=== PATIENT | female | born 1970 | race American Indian/Alaskan Native ===

== ENCOUNTER 2018-03-12 01:37 | Emergency (ER) | payer OTHER ==
[2018-03-12] MEDS ORDERED: MOTRIN ONE (02:24)
[2018-03-12 03:33] LABS: Basophils % (Auto) 0.5 % (0.0-1.8); Eosinophils # (Auto) 0.1 K/mm3 (0.0-0.4); Eosinophils % (Auto) 1.8 % (0.0-4.3); Hematocrit 42.7 % (30.3-42.9); Hemoglobin 14.6 gm/dl (10.1-14.3); Lymphocytes % (Auto) 24.6 % (13.4-35.0); Mean Corpuscular HGB Conc 34 % (30-34); Mean Corpuscular Hemoglobin 32 pg (28-32); Mean Corpuscular Volume 95 fl (79-97); Monocytes # (Auto) 0.8 K/mm3 (0.0-0.8); Monocytes % (Auto) 9.7 % (0.0-7.3); Platelet Count 200 K/mm3 (140-440); Red Cell Distribution Width 13.4 % (13.2-15.2)
[2018-03-12 03:47] LABS: Alanine Aminotransferase 15 units/L (7-56); Albumin 4.5 g/dL (3.9-5); BUN/Creatinine Ratio 13; Blood Urea Nitrogen 13 mg/dL (7-17); Calcium 9.2 mg/dL (8.4-10.2); Hemolysis Index 42
[2018-03-12] MEDS ORDERED: NACL 0.9% 1000 ML 1,000 ML IV ONE (06:21)
[2018-03-12] MEDS ORDERED: ZOFRAN IV ONE (06:21)
[2018-03-12] MEDS ORDERED: PROTONIX IV ONE (06:21)
[2018-03-12] MEDS ORDERED: DILAUDID IV ONE (06:21)
[2018-03-12] MEDS ORDERED: TORADOL IV ONE (06:21)
[2018-03-12] MEDS ORDERED: SOLU-Medrol IV ONE (06:21)
--- NOTE | 2018-03-12 07:03 | Emergency Department Report ---
ED General Adult HPI - General Chief complaint: Pain General Stated complaint: HANDS,FEET,ELBOWS,KNEES SWEELING Time Seen by Provider: 03/12/18 06:06 Source: patient Mode of arrival: Ambulatory Limitations: No Limitations - History of Present Illness Initial comments: 47 year old female with a possible diagnosis of lupus, seizures, and previous perforated peptic ulcer presents to the hospital complaints of generalized arthralgias for 2 days. Patient complains of 10/10 pain to her hands, feet, elbows, and needs 2 days. No fall, trauma, fever, joint redness, warmth, or swelling reported. Pain is constant and worse with palpation and movement. No alleviating factors. Similar symptoms with lupus flare in the past. Patient has not been on this medication since 2013 due to lapse in insurance that she currently has XTRM. Patient states that she was being worked up for lupus and received it as a possible diagnosis but was unable to continue follow-up and treatment. Severity scale (0 -10): 0 - Related Data Home Medications Medication Instructions Recorded Confirmed Last Taken Keppra 1,000 mg PO HS 03/12/18 03/12/18 Unknown Metoprolol 100 mg PO BID 03/12/18 03/12/18 Unknown Phenobarbital 30 mg PO HS 03/12/18 03/12/18 Unknown Plaquenil 150 mg PO BID 03/12/18 03/12/18 Unknown Previous Rx's Medication Instructions Recorded Last Taken Type oxyCODONE /ACETAMINOPHEN [Percocet 1 tab PO Q6HR PRN #20 tablet 03/12/18 Unknown Rx 5/325] predniSONE [Deltasone] 40 mg PO QDAY 5 Days tab 03/12/18 Unknown Rx Allergies Allergy/AdvReac Type Severity Reaction Status Date / Time No Known Allergies Allergy Verified 03/12/18 03:06 ED Review of Systems ROS: Stated complaint: HANDS,FEET,ELBOWS,KNEES SWEELING Other details as noted in HPI Comment: All other systems reviewed and negative ED Past Medical Hx - Past Medical History Hx Seizures: Yes Additional medical history: LUPUS - Surgical History Hx Cholecystectomy: Yes Additional Surgical History: C-sections X 3, Hernia Repair, Perforated Ulcer, Bowel Obstruction - Social History Smoking Status: Current Every Day Smoker Substance Use Type: None - Medications Home Medications: Home Medications Medication Instructions Recorded Confirmed Last Taken Type Keppra 1,000 mg PO HS 03/12/18 03/12/18 Unknown History Metoprolol 100 mg PO BID 03/12/18 03/12/18 Unknown History Phenobarbital 30 mg PO HS 03/12/18 03/12/18 Unknown History Plaquenil 150 mg PO BID 03/12/18 03/12/18 Unknown History oxyCODONE /ACETAMINOPHEN [Percocet 1 tab PO Q6HR PRN #20 tablet 03/12/18 Unknown Rx 5/325] predniSONE [Deltasone] 40 mg PO QDAY 5 Days tab 03/12/18 Unknown Rx ED Physical Exam - General Limitations: No Limitations - Other Other exam information: General: No limitations, moderate distress secondary to pain Head exam: Atraumatic, normocephalic Eyes exam: Normal appearance ENT: Moist mucous membrane Neck exam: Normal inspection, full range of motion, no meningismus nontender Respiratory exam: Clear to auscultation bilateral, no wheezes, rales, crackles Cardiovascular: Tachycardic regular rhythm Abdomen: Soft, nondistended, and nontender, with normal bowel sounds, no rebound, or guarding Extremity: Full range of motion normal inspection no deformity. Tenderness to palpation and with movement multiple extremities Back: Normal Inspection, full range of motion, no tenderness Neurologic: Alert, oriented x3, cranial nerves intact, no motor or sensory deficit Psychiatric: normal affect, normal mood Skin: Warm, dry, intact ED Course Vital Signs 03/12/18 03/12/18 03/12/18 03:09 07:10 07:15 Temperature 98.5 F Pulse Rate 128 H 111 H Respiratory 18 22 Rate Blood Pressure Blood Pressure 127/86 131/93 [Left] O2 Sat by Pulse 99 100 99 Oximetry 03/12/18 03/12/18 03/12/18 07:30 07:45 08:00 Temperature Pulse Rate Respiratory Rate Blood Pressure 121/77 118/77 120/75 Blood Pressure [Left] O2 Sat by Pulse 97 97 96 Oximetry 03/12/18 03/12/18 03/12/18 08:15 08:23 09:37 Temperature 98.7 F Pulse Rate 102 H 100 H Respiratory 20 Rate Blood Pressure 124/76 Blood Pressure 145/90 [Left] O2 Sat by Pulse 96 99 Oximetry - Consultations Consultation #1: 03/12/18 08:40 Case d/w Dr Grant with [facility], will arrange for PCP visit in 3-5 days and Rheumatology visit in 1-2 weeks. RN will call Pt regarding appointments. ED Medical Decision Making - Lab Data Result diagrams: 03/12/18 03:20 03/12/18 03:20 Lab Results 03/12/18 03/12/18 Range/Units 03:20 03:20 WBC 8.1 (4.5-11.0) K/mm3 RBC 4.50 (3.65-5.03) M/mm3 Hgb 14.6 H (10.1-14.3) gm/dl Hct 42.7 (30.3-42.9) % MCV 95 (79-97) fl MCH 32 (28-32) pg MCHC 34 (30-34) % RDW 13.4 (13.2-15.2) % Plt Count 200 (140-440) K/mm3 Lymph % (Auto) 24.6 (13.4-35.0) % [place] % (Auto) 9.7 H (0.0-7.3) % Eos % (Auto) 1.8 (0.0-4.3) % Baso % (Auto) 0.5 (0.0-1.8) % Lymph # 2.0 (1.2-5.4) K/mm3 [place] # 0.8 (0.0-0.8) K/mm3 Eos # 0.1 (0.0-0.4) K/mm3 Baso # 0.0 (0.0-0.1) K/mm3 Seg Neutrophils % 63.4 (40.0-70.0) % Seg Neutrophils # 5.1 (1.8-7.7) K/mm3 Sodium 135 L (137-145) mmol/L Potassium 3.5 L (3.6-5.0) mmol/L Chloride 98.3 (98-107) mmol/L Carbon Dioxide 18 L (22-30) mmol/L Anion Gap 22 mmol/L BUN 13 (7-17) mg/dL Creatinine 1.0 (0.7-1.2) mg/dL Estimated GFR > 60 ml/min BUN/Creatinine Ratio 13 % Glucose 93 (65-100) mg/dL Calcium 9.2 (8.4-10.2) mg/dL Total Bilirubin 0.40 (0.1-1.2) mg/dL AST 23 (5-40) units/L ALT 15 (7-56) units/L Alkaline Phosphatase 60 (35-129) units/L Total Protein 7.8 (6.3-8.2) g/dL Albumin 4.5 (3.9-5) g/dL Albumin/Globulin Ratio 1.4 % - Medical Decision Making hr decreased to 98 at rest after pain meds (Dilaudid, Toradol, Zofran) Protonix x1 due to hx of PUD pt reports improvement but requesting a pill prior to d/c. Percocet given F/u apt's made by [facility] for PMD and rheumatology I am hesitant to continue high dose NSAIDS due to hx of perf ulcer PO kcl given for mild hypokalemia - Differential Diagnosis Lupus flare, arthritis, chronic pain, Critical Care Time: No Critical care attestation.: If time is entered above; I have spent that time in minutes in the direct care of this critically ill patient, excluding procedure time. ED Disposition Clinical Impression: Arthralgia, Lupus, Hypokalemia Disposition: TO HOME OR SELFCARE Is pt being admited?: No Does the pt Need Aspirin: No Condition: Stable Instructions: Arthralgia (ED), Hypokalemia (ED) Additional Instructions: Take the medication as prescribed. Follow up with your doctors as scheduled by [place]. Return if symptoms worsen as indicated by your discharge instructions Prescriptions: oxyCODONE /ACETAMINOPHEN [Percocet 5/325] 1 tab PO Q6HR PRN #20 tablet PRN Reason: Pain predniSONE [Deltasone] 40 mg PO QDAY 5 Days tab Referrals: MD Vivian [Other] - 03/15/18 9:00 am (PCP) MD Tonia [Other] - 03/26/18 9:30 am ([employer]) Time of Disposition: 10:12
[2018-03-12] MEDS ORDERED: K-DUR PO ONE (08:42)
[2018-03-12 09:37] VITALS: BP 145/90
[2018-03-12] MEDS ORDERED: PERCOCET 5/325 PO ONE (10:08)
== END 2018-03-12 10:40 | disposition home or self-care (01) ==
LOC: ED 01:37
DX: M32.9 Systemic lupus erythematosus, unspecified (principal); M25.572 Pain in left ankle and joints of left foot; M25.571 Pain in right ankle and joints of right foot; M25.542 Pain in joints of left hand; M25.541 Pain in joints of right hand; M25.522 Pain in left elbow; M25.521 Pain in right elbow; E87.6 Hypokalemia; Z90.49 Acquired absence of other specified parts of digestive tract; Z87.11 Personal history of peptic ulcer disease
CPT/HCPCS: 36415; 80053; 85025; 93005; 93010; 96374; 96375; 99284; C9113; J1170; J1885; J2405; J2930; J7030

== ENCOUNTER 2018-08-30 12:28 | Inpatient (IN) | payer OTHER ==
[2018-08-30] MEDS ORDERED: ASPIRIN PO ONE (12:38)
[2018-08-30] MEDS ORDERED: ZOFRAN IV ONE (12:53)
[2018-08-30] MEDS ORDERED: DILAUDID IV ONE ×4 (12:53→16:38)
[2018-08-30 13:01] LABS: Basophils % (Auto) 0.4 % (0.0-1.8); Eosinophils # (Auto) 0.1 K/mm3 (0.0-0.4); Eosinophils % (Auto) 0.9 % (0.0-4.3); Lymphocytes # (Auto) 1.6 K/mm3 (1.2-5.4); Lymphocytes % (Auto) 18.1 % (13.4-35.0); Mean Corpuscular HGB Conc 34 % (30-34); Mean Corpuscular Volume 93 fl (79-97); Monocytes # (Auto) 0.6 K/mm3 (0.0-0.8); Platelet Count 250 K/mm3 (140-440); Red Blood Count 4.07 M/mm3 (3.65-5.03); Red Cell Distribution Width 13.1 % (13.2-15.2)
[2018-08-30 13:09] LABS: INR 1.07 (0.87-1.13)
[2018-08-30 13:11] LABS: BUN/Creatinine Ratio 16; Blood Urea Nitrogen 11 mg/dL (7-17); Hemolysis Index 4
--- NOTE | 2018-08-30 13:22 | Emergency Department Report ---
ED Chest Pain HPI - General Chief Complaint: Chest Pain Stated Complaint: CHEST PAIN Time Seen by Provider: 08/30/18 12:47 Source: patient, EMS Mode of arrival: Stretcher Limitations: No Limitations - History of Present Illness Initial Comments: 48-year-old female with past medical history Lupus, hypertension, ulcers, and previous abdominal surgeries presents to the hospital complaining of pleuritic chest pain with shortness of breath. Pain is left-sided, anterior, moderate to severe, and worse with palpation, deep inspiration, and cough. Patient reports that she flew back and forth to [place] 2 weeks ago. She denies calf tenderness, leg edema, leg asymmetry, or history of PE/DVT. Patient also reports bilateral arm pain today. History of lupus-related pain and flare. She is compliant with her medications. Patient presents here with tachycardia just that she is done many times in the past. History of metoprolol use which was recently discontinued and patient states she is currently taking hydrochlorothiazide and amlodipine as prescribed by her [place] physicians. Patient had a TSH of .75 (normal range) performed on 08/27 by her PMD. Severity scale (0 -10): 10 - Related Data Home Medications Medication Instructions Recorded Confirmed Last Taken Ambien 1 each PO DAILY 08/30/18 08/30/18 Unknown Cymbalta 30 mg PO DAILY 08/30/18 08/30/18 Unknown Gabapentin 300 mg PO DAILY 08/30/18 08/30/18 Unknown Hydrochlorothiazide 25 mg PO DAILY 08/30/18 08/30/18 Unknown Seroquel 50 mg PO HS 08/30/18 08/30/18 Unknown amLODIPine 10 mg PO DAILY 08/30/18 08/30/18 Unknown Previous Rx's Medication Instructions Recorded Last Taken Type Ondansetron [Zofran Odt] 4 mg PO Q8HR PRN #20 tab.rapdis 04/21/18 Unknown Rx Keppra 750 mg PO BID #60 08/31/18 Unknown Rx Oxycodone HCl/Acetaminophen 1 each PO Q6HR PRN #20 tablet 08/31/18 Unknown Rx [Percocet 7.5/325 mg] Plaquenil 150 mg PO BID 08/31/18 Unknown Rx QUEtiapine [SEROquel] 50 mg PO QHS tablet 08/31/18 Unknown Rx levoFLOXacin [Levaquin] 750 mg PO QDAY #10 tablet 08/31/18 Unknown Rx predniSONE [Deltasone] 40 mg PO QDAY tablet 08/31/18 Unknown Rx Allergies Allergy/AdvReac Type Severity Reaction Status Date / Time lisinopril Allergy Swelling Verified 08/30/18 18:30 Heart Score - HEART Score History: Slightly suspicious EKG: Non-specific Age: 45-65 Risk factors: 1-2 risk factors Troponin: < normal limit HEART Score: 3 ED Review of Systems ROS: Stated complaint: CHEST PAIN Other details as noted in HPI Comment: All other systems reviewed and negative ED Past Medical Hx - Past Medical History Previous Medical History?: Yes Hx Hypertension: Yes Hx Seizures: Yes Additional medical history: LUPUS, ulcers - Surgical History Past Surgical History?: Yes Hx Cholecystectomy: Yes Additional Surgical History: C-sections X 3, Hernia Repair, Perforated Ulcer, Bowel Obstruction - Social History Smoking Status: Current Every Day Smoker Substance Use Type: None - Medications Home Medications: Home Medications Medication Instructions Recorded Confirmed Last Taken Type Ondansetron [Zofran Odt] 4 mg PO Q8HR PRN #20 tab.rapdis 04/21/18 08/30/18 Unknown Rx Ambien 1 each PO DAILY 08/30/18 08/30/18 Unknown History Cymbalta 30 mg PO DAILY 08/30/18 08/30/18 Unknown History Gabapentin 300 mg PO DAILY 08/30/18 08/30/18 Unknown History Hydrochlorothiazide 25 mg PO DAILY 08/30/18 08/30/18 Unknown History Seroquel 50 mg PO HS 08/30/18 08/30/18 Unknown History amLODIPine 10 mg PO DAILY 08/30/18 08/30/18 Unknown History Keppra 750 mg PO BID #60 08/31/18 Unknown Rx Oxycodone HCl/Acetaminophen 1 each PO Q6HR PRN #20 tablet 08/31/18 Unknown Rx [Percocet 7.5/325 mg] Plaquenil 150 mg PO BID 08/31/18 Unknown Rx QUEtiapine [SEROquel] 50 mg PO QHS tablet 08/31/18 Unknown Rx levoFLOXacin [Levaquin] 750 mg PO QDAY #10 tablet 08/31/18 Unknown Rx predniSONE [Deltasone] 40 mg PO QDAY tablet 08/31/18 Unknown Rx ED Physical Exam - General Limitations: No Limitations - Other Other exam information: General: No limitations, patient is alert in no acute distress Head exam: Atraumatic, normocephalic Eyes exam: Normal appearance, pupils equal reactive to light, extraocular movements intact ENT: Moist mucous membrane, normal oropharynx Neck exam: Normal inspection, full range of motion, no meningismus nontender Respiratory exam: Clear to auscultation bilateral, no wheezes, rales, crackles Cardiovascular: Tachycardic regular rhythm, left sided lower chest wall tenderness on palpation Abdomen: Soft, nondistended, and nontender, with normal bowel sounds, no rebound, or guarding Extremity: Full range of motion normal inspection no deformity, no calf tenderness or edema Back: Normal Inspection, full range of motion, no tenderness Neurologic: Alert, oriented x3, cranial nerves intact, no motor or sensory deficit Psychiatric: normal affect, normal mood Skin: Warm, dry, intact ED Course Vital Signs 08/30/18 08/30/18 08/30/18 12:30 12:33 13:13 Temperature 98.6 F Pulse Rate 132 H Respiratory 20 33 H 18 Rate Blood Pressure 128/83 Blood Pressure 128/83 [Left] O2 Sat by Pulse 100 98 Oximetry 08/30/18 08/30/18 08/30/18 13:43 14:16 14:41 Temperature Pulse Rate Respiratory 18 18 18 Rate Blood Pressure Blood Pressure [Left] O2 Sat by Pulse Oximetry 08/30/18 08/30/18 08/30/18 15:49 15:50 16:19 Temperature Pulse Rate 120 H Respiratory 18 18 18 Rate Blood Pressure Blood Pressure 126/82 [Left] O2 Sat by Pulse 96 Oximetry 08/30/18 08/30/18 08/30/18 16:43 16:45 17:45 Temperature Pulse Rate 123 H 130 H Respiratory 18 20 18 Rate Blood Pressure Blood Pressure 134/87 123/87 [Left] O2 Sat by Pulse 97 97 Oximetry 08/30/18 08/30/18 08/30/18 18:23 18:26 18:30 Temperature Pulse Rate 130 H 126 H 127 H Respiratory 18 26 H 36 H Rate Blood Pressure Blood Pressure 128/82 [Left] O2 Sat by Pulse 99 95 99 Oximetry 08/30/18 08/30/18 08/30/18 18:40 18:50 19:00 Temperature Pulse Rate Respiratory 34 H Rate Blood Pressure Blood Pressure [Left] O2 Sat by Pulse 96 96 96 Oximetry 08/30/18 08/30/18 08/30/18 19:10 19:15 19:20 Temperature 98.3 F Pulse Rate 116 H Respiratory 22 Rate Blood Pressure 134/87 134/87 Blood Pressure 148/87 [Left] O2 Sat by Pulse 97 98 97 Oximetry 08/30/18 08/30/18 08/30/18 19:31 19:41 19:51 Temperature Pulse Rate 130 H Respiratory 30 H Rate Blood Pressure 148/87 148/87 148/87 Blood Pressure [Left] O2 Sat by Pulse 95 96 98 Oximetry 08/30/18 08/30/18 20:00 20:11 Temperature Pulse Rate 119 H 130 H Respiratory 20 26 H Rate Blood Pressure 149/85 148/87 Blood Pressure [Left] O2 Sat by Pulse 93 97 Oximetry - Reevaluation(s) Reevaluation #1: 08/30/18 16:56 See multiple doses of narcotics for pain relief without improvement. Signed but also provided for joint pain secondary to probable lupus flare. Patient also received IV fluids. Patient remains tachycardic and has a history of the same but is no longer on metoprolol. Recent outpt tsh normal - Consultations Consultation #1: 08/30/18 16:19 [place] paged 16:56 Case d/w Dr Mills, awaiting callback regarding acceptance 08/30/18 18:19 DR Mills requests that I keep pt at this hospital due to persistent tachycardia COLUMBA score - Columba Score Age > 65: (0) No Aspirin use within the Past 7 Days: (0) No 3 or more CAD Risk Factors: (0) No 2 or more Angina events in past 24 hrs: (0) No Known CAD with more than 50% Stenosis: (0) No Elevated Cardiac Markers: (0) No ST Deviation Greater than 0.5mm: (0) No COLUMBA Score: 0 ED Medical Decision Making - Lab Data Result diagrams: 08/30/18 12:40 08/31/18 04:34 Lab Results 08/30/18 08/30/18 08/30/18 Range/Units 12:40 12:40 12:45 WBC 8.6 (4.5-11.0) K/mm3 RBC 4.07 (3.65-5.03) M/mm3 Hgb 13.0 (10.1-14.3) gm/dl Hct 38.0 (30.3-42.9) % MCV 93 (79-97) fl MCH 32 (28-32) pg MCHC 34 (30-34) % RDW 13.1 L (13.2-15.2) % Plt Count 250 (140-440) K/mm3 Lymph % (Auto) 18.1 (13.4-35.0) % [place] % (Auto) 7.0 (0.0-7.3) % Eos % (Auto) 0.9 (0.0-4.3) % Baso % (Auto) 0.4 (0.0-1.8) % Lymph # 1.6 (1.2-5.4) K/mm3 [place] # 0.6 (0.0-0.8) K/mm3 Eos # 0.1 (0.0-0.4) K/mm3 Baso # 0.0 (0.0-0.1) K/mm3 Seg Neutrophils % 73.6 H (40.0-70.0) % Seg Neutrophils # 6.4 (1.8-7.7) K/mm3 PT 14.6 (12.2-14.9) Sec. INR 1.07 (0.87-1.13) D-Dimer (0-234) ng/mlDDU Sodium 134 L (137-145) mmol/L Potassium 3.5 L (3.6-5.0) mmol/L Chloride 98.5 (98-107) mmol/L Carbon Dioxide 20 L (22-30) mmol/L Anion Gap 19 mmol/L BUN 11 (7-17) mg/dL Creatinine 0.7 (0.7-1.2) mg/dL Estimated GFR > 60 ml/min BUN/Creatinine Ratio 16 % Glucose 102 H (65-100) mg/dL Calcium 9.0 (8.4-10.2) mg/dL Troponin T < 0.010 (0.00-0.029) ng/mL HCG, Qual (Negative) 08/30/18 08/30/18 08/30/18 Range/Units 12:45 12:45 15:49 WBC (4.5-11.0) K/mm3 RBC (3.65-5.03) M/mm3 Hgb (10.1-14.3) gm/dl Hct (30.3-42.9) % MCV (79-97) fl MCH (28-32) pg MCHC (30-34) % RDW (13.2-15.2) % Plt Count (140-440) K/mm3 Lymph % (Auto) (13.4-35.0) % [place] % (Auto) (0.0-7.3) % Eos % (Auto) (0.0-4.3) % Baso % (Auto) (0.0-1.8) % Lymph # (1.2-5.4) K/mm3 [place] # (0.0-0.8) K/mm3 Eos # (0.0-0.4) K/mm3 Baso # (0.0-0.1) K/mm3 Seg Neutrophils % (40.0-70.0) % Seg Neutrophils # (1.8-7.7) K/mm3 PT (12.2-14.9) Sec. INR (0.87-1.13) D-Dimer 855.86 H (0-234) ng/mlDDU Sodium (137-145) mmol/L Potassium (3.6-5.0) mmol/L Chloride (98-107) mmol/L Carbon Dioxide (22-30) mmol/L Anion Gap mmol/L BUN (7-17) mg/dL Creatinine (0.7-1.2) mg/dL Estimated GFR ml/min BUN/Creatinine Ratio % Glucose (65-100) mg/dL Calcium (8.4-10.2) mg/dL Troponin T < 0.010 (0.00-0.029) ng/mL HCG, Qual Negative (Negative) - EKG Data -: EKG Interpreted by Al EKG shows normal: sinus rhythm, axis (qrs 14), QRS complexes (qrsd 78), ST-T waves (no stemi/ t inv) Rate: tachycardia (120) - EKG Data When compared to previous EKG there are: no significant change - Radiology Data Radiology results: report reviewed CTA CHEST: HISTORY: Chest pain, shortness of breath. COMPARISON: none. TECHNIQUE: Helical CT in 1.25mm intervals following IV contrast. Pulmonary embolus protocol. Sagittal and coronal reformatted images. Rotational MIP images. FINDINGS: Contrast bolus is satisfactory. No pulmonary embolus is identified. Thyroid gland: Normal. Tracheobronchial tree: Normal. Esophagus: Normal. Heart: Normal. Pericardium: Normal. Mediastinum: Normal. Lung Das: There is moderate infiltrate in the medial left lower lobe consistent with pneumonia. The remainder of the lungs are clear. No significant parenchymal lung disease is appreciated. Pleural Spaces: Normal. Musculoskeletal: Normal. IMPRESSION: No evidence for pulmonary embolus. Left lower lobe pneumonia. HISTORY: chest pain There is poor inspiration. Subtle infiltrate is suspected in the medial left lower lobe. The remainder the lungs are clear. Normal heart and mediastinal structures. Normal bony thorax. IMPRESSION: Left lower lobe infiltrate. - Medical Decision Making pt leaves initially here for persistent pain and tachycardia and positive pneumonia. Patient received Rocephin and azithromycin for pneumonia. Multiple doses of Dilaudid and Solu-Medrol for pain related to lupus. Case discussed with [place] physician who recommends the patient be admitted here. CT angiogram chest and bilateral Dopplers negative for PE/DVT. No signs of septic shock at this time. Normal saline also provided with improvement in heart rate. - Differential Diagnosis pleuritic chest pain, pneumothorax, pulmonary embolism, CA, unstable angina Critical Care Time: No Critical care attestation.: If time is entered above; I have spent that time in minutes in the direct care of this critically ill patient, excluding procedure time. ED Disposition Clinical Impression: Pneumonia, Left-sided chest pain, Lupus, Tachycardia Upper extremity pain Qualifiers: Laterality: bilateral Qualified Code(s): M79.601 - Pain in right arm Disposition: OP ADMIT IP TO THIS HOSP Is pt being admited?: Yes Condition: Stable Time of Disposition: 18:23 (DR Scott/hosp)
--- NOTE | 2018-08-30 14:01 | XRay Report ---
AP CHEST: HISTORY: chest pain There is poor inspiration. Subtle infiltrate is suspected in the medial left lower lobe. The remainder the lungs are clear. Normal heart and mediastinal structures. Normal bony thorax. IMPRESSION: Left lower lobe infiltrate.
--- NOTE | 2018-08-30 14:07 | Cat Scan Report ---
CTA CHEST: HISTORY: Chest pain, shortness of breath. COMPARISON: none. TECHNIQUE: Helical CT in 1.25mm intervals following IV contrast. Pulmonary embolus protocol. Sagittal and coronal reformatted images. Rotational MIP images. FINDINGS: Contrast bolus is satisfactory. No pulmonary embolus is identified. Thyroid gland: Normal. Tracheobronchial tree: Normal. Esophagus: Normal. Heart: Normal. Pericardium: Normal. Mediastinum: Normal. Lung Das: There is moderate infiltrate in the medial left lower lobe consistent with pneumonia. The remainder of the lungs are clear. No significant parenchymal lung disease is appreciated. Pleural Spaces: Normal. Musculoskeletal: Normal. IMPRESSION: No evidence for pulmonary embolus. Left lower lobe pneumonia.
[2018-08-30] MEDS ORDERED: ZITHROMAX PO ONE (14:56)
[2018-08-30] MEDS ORDERED: ROCEPHIN/NS 1 GM/50 ML 1 GM/50 ML BAG IV ONE (14:56)
[2018-08-30] MEDS ORDERED: K-DUR PO ONE (14:57)
[2018-08-30] MEDS ORDERED: SOLU-Medrol IV ONE ×2 (16:38→19:10)
[2018-08-30] MEDS ORDERED: NACL 0.9% 1000 ML 1,000 ML IV ONE (16:38)
--- NOTE | 2018-08-30 16:57 | Vascular Lab Report ---
PROCEDURE: VL VENOUS DUPLEX LE BILAT TECHNIQUE: Grayscale and color and spectral doppler ultrasound imaging of the bilateral lower extrem ity venous system was performed. HISTORY: elevated ddimer COMPARISONS: None. FINDINGS: There is normal compression and color flow within the bilateral lower extremity venous systems. Norm al augmentation was seen. A mildly prominent lymph node is seen in the right inguinal region measurin g 3.0 x 1.2 cm. IMPRESSION: 1. Negative for bilateral lower extremity DVT. 2. Prominent right inguinal lymph node is likely reactive. This document is electronically signed by Zuleima Melendez., August 30 2018 04:54:58 PM ET
--- NOTE | 2018-08-30 18:29 | History and Physical Report ---
History of Present Illness Chief complaint: Im hurting all over History of present illness: 48 YO Female with SLE not currently taking medication, HTN, PUD, Seizure Disorder presents to ED for evaluation. Pt states that she has experienced pain all over her body over the past week, with progressively worsening symptoms over the past two days. Pt states that she has "aches" all over her body. Pt states that she was last seen by her Band Salvager a few weeks ago and has been slowly weaned off her medication. EMS notified, and upon arrival the patient was found to be in distress and transported to [facility]. Pt seen and evaluated in ED and found to have SLE Flare, CHIDI Pneumonia, and Acidosis. Pt denies fever, chills, CP, Palpitations, NVD, Unilateral leg swelling, Calf pain, Orthopnea/PND, Decreased Exercise tolerance, Productive cough, Hemoptysis, or recent ill contacts. Pt treated with IV steroid therapy. Pt admitted to medical floor. Past History Past Medical History: hypertension, seizures, other (SLE, PUD, ) Past Surgical History: appendectomy, cholecystectomy, , hernia repair, bowel surgery Social history: , lives with family, smoking. denies: alcohol abuse, prescription drug abuse Family history: hypertension Medications and Allergies Allergies Allergy/AdvReac Type Severity Reaction Status Date / Time lisinopril Allergy Swelling Verified 08/30/18 18:30 Home Medications Medication Instructions Recorded Confirmed Last Taken Type Keppra 1,000 mg PO HS 03/12/18 08/30/18 Unknown History Ondansetron [Zofran Odt] 4 mg PO Q8HR PRN #20 tab.rapdis 04/21/18 08/30/18 Unknown Rx Oxycodone HCl/Acetaminophen 1 each PO Q6HR PRN #20 tablet 04/21/18 08/30/18 Unknown Rx [Percocet 7.5/325 mg] Ambien 1 each PO DAILY 08/30/18 08/30/18 Unknown History Cymbalta 30 mg PO DAILY 08/30/18 08/30/18 Unknown History Gabapentin 300 mg PO DAILY 08/30/18 08/30/18 Unknown History Hydrochlorothiazide 25 mg PO DAILY 08/30/18 08/30/18 Unknown History Seroquel 50 mg PO HS 08/30/18 08/30/18 Unknown History amLODIPine 10 mg PO DAILY 08/30/18 08/30/18 Unknown History Review of Systems Constitutional: chronic pain, no weight loss, no weight gain, no fever, no chills Ears, nose, mouth and throat: no ear pain, no ear discharge, no tinnitis, no decreased hearing, no nose pain Breasts: no change in shape, no swelling, no mass Cardiovascular: no chest pain, no orthopnea, no palpitations, no rapid/irregular heart beat, no edema Respiratory: no cough, no cough with sputum, no excessive sputum, no hemoptysis, no shortness of breath Gastrointestinal: no nausea, no vomiting, no diarrhea, no constipation Genitourinary Female: no dysmenorrhea, no pelvic pain, no flank pain, no menorrhagia Rectal: no pain, no incontinence, no bleeding Musculoskeletal: no neck stiffness, no neck pain, no shooting arm pain, no arm numbness/tingling, no low back pain Integumentary: no rash, no pruritis, no sores, no wounds Neurological: no head injury, no transient paralysis, no paralysis, no weakness, no parathesias Psychiatric: anxiety, sleep disturbances, insomnia, anxiety attacks, no memory loss, no change in sleep habits Endocrine: no cold intolerance, no heat intolerance, no polyphagia, no excessive thirst, no polydipsia Hematologic/Lymphatic: no easy bruising, no easy bleeding, no lymphadenopathy, no lymphedema Allergic/Immunologic: no urticaria, no allergic rhinitis, no persistent infections Exam - Constitutional Vitals: Temp Pulse Resp BP Pulse Ox 98.6 F 130 H 18 128/82 99 08/30/18 12:33 08/30/18 18:23 08/30/18 18:23 08/30/18 18:23 08/30/18 18:23 General appearance: Present: mild distress - EENT Eyes: Present: PERRL ENT: hearing intact, clear oral mucosa - Neck Neck: Present: supple, normal ROM - Respiratory Respiratory effort: normal Respiratory: left: diminished, rhonchi - Cardiovascular Heart Sounds: Present: S1 & S2. Absent: rub, click - Extremities Extremities: pulses symmetrical, No edema Peripheral Pulses: within normal limits - Abdominal General gastrointestinal: Present: soft, non-tender, non-distended, normal bowel sounds Female genitourinary: Present: normal - Integumentary Integumentary: Present: clear, warm, dry - Musculoskeletal Musculoskeletal: gait normal, strength equal bilaterally - Psychiatric Psychiatric: appropriate mood/affect, intact judgment & insight, agitated - Neurologic Neurologic: CNII-XII intact, moves all extremities Results - Labs CBC & Chem 7: 08/30/18 12:40 08/30/18 12:40 Labs: Abnormal lab results 08/30/18 08/30/18 08/30/18 Range/Units 12:40 12:40 12:45 RDW 13.1 L (13.2-15.2) % Seg Neutrophils % 73.6 H (40.0-70.0) % D-Dimer 855.86 H (0-234) ng/mlDDU Sodium 134 L (137-145) mmol/L Potassium 3.5 L (3.6-5.0) mmol/L Carbon Dioxide 20 L (22-30) mmol/L Glucose 102 H (65-100) mg/dL Assessment and Plan - Patient Problems (1) LLL pneumonia Current Visit: Yes Status: Acute Plan to address problem: Pneumonia protocol: IV antibiotic therapy, supplemental oxygen, nebulizer therapy, blood cultures, chest x ray, (2) SLE exacerbation Current Visit: Yes Status: Acute Plan to address problem: IV steroid therapy, Resume plaquenil, pain control, resume cymbalta, outpatient Rheumatology F/U care. (3) Acidosis Current Visit: Yes Status: Acute Plan to address problem: IVF resuscitation therapy, repeat bmp. (4) Nicotine dependence unspecified, with withdrawal Current Visit: Yes Status: Acute Qualifiers: Nicotine product type: cigarettes Qualified Code(s): F17.213 - Nicotine dependence, cigarettes, with withdrawal Plan to address problem: Smoking cessation counseling, supportive care (5) Seizure disorder Current Visit: Yes Status: Acute Plan to address problem: Keppra level, Continue Keppra BID, seizure precautions, Neuro checks (6) DVT prophylaxis Current Visit: Yes Status: Acute Plan to address problem: SCD to BLE while in bed.
[2018-08-30] MEDS ORDERED: PROVENTIL IH PRN (19:01)
[2018-08-30] MEDS ORDERED: TYLENOL PO PRN (19:01)
[2018-08-30] MEDS ORDERED: SODIUM CHLORIDE FLUSH SYRINGE 10 ML IV PRN (19:01)
[2018-08-30] MEDS ORDERED: ZOFRAN IV PRN (19:01)
[2018-08-30] MEDS ORDERED: ZOFRAN ODT PO PRN (19:03)
[2018-08-30] MEDS ORDERED: NON-FORMULARY (Oxycodone Hcl/Acetaminophen [Percocet 7.5/325 Mg] 1 EACH) PO PRN (19:03)
[2018-08-30] MEDS ORDERED: MIRALAX 3350 PO PRN (19:03)
[2018-08-30] MEDS ORDERED: COLACE PO PRN (19:03)
[2018-08-30] MEDS ORDERED: XANAX PO ONE (19:10)
[2018-08-30 20:40] LABS: Bilirubin,Urine NEG (Negative); Blood,Urine NEG (Negative); Color,Urine Amber (Yellow); Mucus,Urine FEW /HPF
[2018-08-30] MEDS: PERCOCET 5/325 PO PRN (20:43)
[2018-08-30] MEDS: ROXICODONE PO PRN (21:16)
[2018-08-30] MEDS: LOPRESSOR PO SCH (21:17)
[2018-08-30] MEDS: SODIUM CHLORIDE FLUSH SYRINGE 10 ML IV SCH (21:21)
[2018-08-30] MEDS ORDERED: KEPPRA PO SCH (22:00)
[2018-08-30] MEDS ORDERED: NON-FORMULARY (Metoprolol 100 MG) PO SCH (22:00)
[2018-08-30] MEDS ORDERED: KEPPRA 1000 MG PO SCH (22:00)
[2018-08-30] MEDS ORDERED: NON-FORMULARY (Seroquel 50 MG) PO SCH (22:00)
[2018-08-30] MEDS ORDERED: HYDROXYCHLOROQUINE PO SCH (22:00)
[2018-08-30] MEDS ORDERED: PHENOBARBITAL 30 MG PO SCH (22:00)
[2018-08-31] MEDS: XANAX PO PRN ×2 (00:36→07:56)
[2018-08-31] MEDS: ROXICODONE PO PRN ×3 (03:32→15:55)
[2018-08-31] MEDS: PERCOCET 5/325 PO PRN ×3 (03:33→15:53)
[2018-08-31 05:42] LABS: BUN/Creatinine Ratio 11; Blood Urea Nitrogen 8 mg/dL (7-17); Calcium 8.9 mg/dL (8.4-10.2); Hemolysis Index 5
[2018-08-31] MEDS ORDERED: NON-FORMULARY (Gabapentin 300 MG) PO SCH (10:00)
[2018-08-31] MEDS ORDERED: CYMBALTA 30 MG PO SCH (10:00)
[2018-08-31] MEDS ORDERED: PROTONIX PO SCH (10:00)
[2018-08-31] MEDS ORDERED: DELTASONE PO SCH (10:00)
[2018-08-31] MEDS ORDERED: CYMBALTA PO SCH (10:00)
[2018-08-31] MEDS ORDERED: ZITHROMAX 500 MG in NACL 0.9% 250ML 250 ML IV SCH (10:00)
[2018-08-31] MEDS ORDERED: HCTZ PO SCH (10:00)
[2018-08-31] MEDS ORDERED: ROCEPHIN/NS 2 GM/100 ML 2 GM/100 ML BAG IV SCH (10:00)
[2018-08-31] MEDS ORDERED: NON-FORMULARY (Hydrochlorothiazide 25 MG) PO SCH (10:00)
[2018-08-31] MEDS ORDERED: ALBENDAZOLE 200 MG PO SCH ×2 (10:00)
[2018-08-31] MEDS ORDERED: NON-FORMULARY (Omeprazole Magnesium [Prilosec Otc] 20 MG) PO SCH (10:00)
[2018-08-31] MEDS ORDERED: NEURONTIN PO SCH (10:00)
[2018-08-31] MEDS: LOPRESSOR PO SCH (10:07)
[2018-08-31] MEDS: SODIUM CHLORIDE FLUSH SYRINGE 10 ML IV SCH (10:09)
[2018-08-31] MEDS ORDERED: BENADRYL PO PRN (12:32)
[2018-08-31] MEDS ORDERED: HABITROL TD SCH (14:00)
--- NOTE | 2018-08-31 17:39 | Discharge Summary ---
Providers - Providers Date of Admission: 08/30/18 19:01 Date of discharge: 08/31/18 Attending physician: JACKELINE Barlow Primary care physician: STRATEGIC ADVISOR Hospitalization Condition: Stable Hospital course: (1) LLL pneumonia Current Visit: Yes Status: Acute Plan to address problem: Feeling better D/c home on Po Levaquin (2) SLE exacerbation Current Visit: Yes Status: Acute Plan to address problem: Cont plaquenil, pain control, resume cymbalta, outpatient Rheumatology F/U care. (3) Acidosis Current Visit: Yes Status: Acute Plan to address problem: IVF resuscitation therapy, repeat bmp. (4) Nicotine dependence unspecified, with withdrawal Current Visit: Yes Status: Acute Qualifiers: Nicotine product type: cigarettes Qualified Code(s): F17.213 - Nicotine dependence, cigarettes, with withdrawal Plan to address problem: Smoking cessation counseling, supportive care (5) Seizure disorder Current Visit: Yes Status: Acute Plan to address problem: Keppra level, Continue Keppra BID, seizure precautions, Neuro checks Disposition: - TO HOME OR SELFCARE Core Measure Documentation - Palliative Care Palliative Care/ Comfort Measures: Not Applicable - Core Measures Any of the following diagnoses?: none Exam - Constitutional Vitals: Temp Pulse Resp BP Pulse Ox 98.3 F 91 H 18 135/77 100 08/31/18 05:17 08/31/18 11:09 08/31/18 05:17 08/31/18 10:07 08/31/18 11:09 General appearance: Present: no acute distress, well-nourished - EENT Eyes: Present: PERRL ENT: hearing intact, clear oral mucosa - Neck Neck: Present: supple, normal ROM - Respiratory Respiratory effort: normal Respiratory: bilateral: CTA - Cardiovascular Heart rate: 78 Rhythm: regular Heart Sounds: Present: S1 & S2. Absent: rub, click - Extremities Extremities: no ischemia, pulses intact, pulses symmetrical, No edema Peripheral Pulses: within normal limits - Abdominal General gastrointestinal: Present: soft, non-tender, non-distended, normal bowel sounds Female genitourinary: Present: normal - Rectal Rectal Exam: deferred - Integumentary Integumentary: Present: clear, warm, dry - Musculoskeletal Musculoskeletal: gait normal, strength equal bilaterally - Psychiatric Psychiatric: appropriate mood/affect, intact judgment & insight - Neurologic Neurologic: CNII-XII intact, moves all extremities Plan Activity: no restrictions Diet: low salt Special Instructions: smoking cessation Follow up with: PRIMARY CARE, [Primary Care Provider] - 3-5 Days
[2018-08-31 18:01] VITALS: BP 131/79
== END 2018-08-31 18:18 | disposition home or self-care (01) | DRG 545 ==
LOC: ED 12:28 → 3A 19:01
PROVIDERS: ADMIT Internal Medicine; ATTEND Internal Medicine
DX: M32.9 Systemic lupus erythematosus, unspecified (principal); J18.1 Lobar pneumonia, unspecified organism; E87.2 Acidosis; F17.213 Nicotine dependence, cigarettes, with withdrawal; G40.909 Epilepsy, unspecified, not intractable, without status epilepticus; I10 Essential (primary) hypertension; Z79.899 Other long term (current) drug therapy; Z88.6 Allergy status to analgesic agent; Z87.11 Personal history of peptic ulcer disease; Z90.49 Acquired absence of other specified parts of digestive tract; Z82.49 Family history of ischemic heart disease and other diseases of the circulatory system
CPT/HCPCS: 36415; 71045; 71275; 80048; 80177; 81001; 84484; 84703; 85025; 85379; 85610; 87040; 87076; 87186; 93005; 93010; 93970; 96365; 96375; 96376; G0378; J0456; J0696; J1170; J2405; J2920; J2930; J3246; J7030; J7050; J7512; Q9967

== ENCOUNTER 2018-12-28 01:44 | Emergency (ER) | payer OTHER ==
[2018-12-28] MEDS ORDERED: SUBLIMAZE IV ONE ×2 (02:23→03:36)
[2018-12-28] MEDS ORDERED: ZOFRAN IV ONE (02:23)
[2018-12-28] MEDS ORDERED: SOLU-Medrol IV ONE (02:23)
[2018-12-28] MEDS ORDERED: BENADRYL IV ONE (02:23)
[2018-12-28] MEDS ORDERED: NACL 0.9% 1000 ML 1,000 ML IV ONE ×2 (02:23→04:53)
--- NOTE | 2018-12-28 02:35 | Emergency Department Report ---
HPI - General Chief Complaint: Pain General Time Seen by Provider: 12/28/18 02:14 - HPI HPI: Room 3 The patient is a 48-year-old female presenting with a chief complaint of lupus flareup. Patient states today she developed pain in all 4 extremities con sistent with her previous bouts of lupus flares. The patient states she finished her prednisone taper 4 days ago. Patient currently gets her pain score 10/10. Patient states her pain feels like her previous episodes. \ Location: [See above] Duration: [See above] Quality: [See above] Severity: [See above] Modifying factors: [see above] Context: [see above] Mode of transportation: [not driving] ED Past Medical Hx - Past Medical History Previous Medical History?: Yes Hx Hypertension: Yes Hx Seizures: Yes Additional medical history: LUPUS, ulcers - Surgical History Past Surgical History?: Yes Hx Cholecystectomy: Yes Additional Surgical History: C-sections X 3, Hernia Repair, Perforated Ulcer, Bowel Obstruction - Family History Family history: no significant - Social History Smoking Status: Current Every Day Smoker (1/3 pack per day) Substance Use Type: Alcohol (occasional), Cocaine - Medications Home Medications: Home Medications Medication Instructions Recorded Confirmed Last Taken Type Ondansetron [Zofran Odt] 4 mg PO Q8HR PRN #20 tab.rapdis 04/21/18 08/30/18 Unkn own Rx Ambien 1 each PO DAILY 08/30/18 08/30/18 Unknown History Cymbalta 30 mg PO DAILY 08/30/18 08/30/18 Unknown History Gabapentin 300 mg PO DAILY 08/30/18 08/30/18 Unknown History Hydrochlorothiazide 25 mg PO DAILY 08/30/18 08/30/18 Unknown History Seroquel 50 mg PO HS 08/30/18 08/30/18 Unknown History amLODIPine 10 mg PO DAILY 08/30/18 08/30/18 Unknown History Keppra 750 mg PO BID #60 08/31/18 Unknown Rx Oxycodone HCl/Acetaminophen 1 each PO Q6HR PRN #20 tablet 08/31/18 Unknown Rx [Percocet 7.5/325 mg] Plaquenil 150 mg PO BID 08/31/18 Unknown Rx QUEtiapine [SEROquel] 50 mg PO QHS tablet 08/31/18 Unknown Rx levoFLOXacin [Levaquin] 750 mg PO QDAY #10 tablet 08/31/18 Unknown Rx predniSONE [Deltasone] 40 mg PO QDAY tablet 08/31/18 Unknown Rx HYDROcodone/APAP 5-325 [[place] 1 - 2 each PO Q6HR PRN #14 tablet 12/28/18 Unknown Rx 5/325] ED Review of Systems ROS: Stated complaint: LUPUS PAIN Other details as noted in HPI Constitutional: no symptoms reported Eyes: denies: eye pain ENT: denies: throat pain Respiratory: no symptoms reported Cardiovascular: denies: chest pain Endocrine: no symptoms reported Gastrointestinal: denies: abdominal pain Genitourinary: denies: dysuria Musculoskeletal: arthralgia, myalgia Skin: rash Neurological: denies: headache Physical Exam - Physical Exam Vital Signs: Vital Signs 12/28/18 12/28/18 12/28/18 01:54 01:56 02:00 Temperature Pulse Rate 131 H 126 H Respiratory 22 20 20 Rate Blood Pressure [Left] O2 Sat by Pulse 98 99 98 Oximetry 12/28/18 02:16 Temperature 98.2 F Pulse Rate 129 H Respiratory 16 Rate Blood Pressure 142/104 [Left] O2 Sat by Pulse 99 Oximetry Physical Exam: GENERAL: The patient is well-developed well-nourished female lying on stretcher not appearing to be in acute distress. [] HEENT: Normocephalic. Atraumatic. Extraocular motions are intact. Patient has moist mucous membranes. NECK: Supple. Trachea midline CHEST/LUNGS: Clear to auscultation. There is no respiratory distress noted. HEART/CARDIOVASCULAR: Regular. There is tachycardia. There is no gallop rub or murmur. ABDOMEN: Abdomen is soft, nontender. Patient has normal bowel sounds. There is no abdominal distention. SKIN: There is diffuse nodules over the patient's in bilateral upper extremities. Chronic appearing hyperpigmented lesions diffusely throughout body. There is no edema. There is no diaphoresis. and gait. MUSCULOSKELETAL: There is no evidence of acute injury. ED Course Vital Signs 12/28/18 12/28/18 12/28/18 01:54 01:56 02:00 Temperature Pulse Rate 131 H 126 H Respiratory 22 20 20 Rate Blood Pressure [Left] O2 Sat by Pulse 98 99 98 Oximetry 12/28/18 02:16 Temperature 98.2 F Pulse Rate 129 H Respiratory 16 Rate Blood Pressure 142/104 [Left] O2 Sat by Pulse 99 Oximetry - Reevaluation(s) Reevaluation #1: 12/28/18 05:24 Patient states her pain is controlled currently ED Medical Decision Making - Lab Data Result diagrams: 12/28/18 02:27 12/28/18 02:27 - Differential Diagnosis Lupus flare, substance abuse, dehydration Critical care attestation.: If time is entered above; I have spent that time in minutes in the direct care of this critically ill patient, excluding procedure time. ED Disposition Clinical Impression: Tachycardia, Lupus, Extremity pain, Cocaine abuse Disposition: DC- TO HOME OR SELFCARE Is pt being admited?: No Does the pt Need Aspirin: No Condition: Stable Additional Instructions: Return to the emergency department immediately should you develop worsening symptoms, fever, inability to tolerate food or liquid or any other concerns. Prescriptions: HYDROcodone/APAP 5-325 [[place] 5/325] 1 - 2 each PO Q6HR PRN #14 tablet PRN Reason: Pain Referrals: [facility] [Provider Group] - 3-5 Days Time of Disposition: 06:24
[2018-12-28 02:56] LABS: Basophils # (Auto) 0.1 K/mm3 (0.0-0.1); Basophils % (Auto) 0.4 % (0.0-1.8); Eosinophils # (Auto) 0.7 K/mm3 (0.0-0.4); Eosinophils % (Auto) 4.6 % (0.0-4.3); Hematocrit 35.2 % (30.3-42.9); Lymphocytes # (Auto) 2.7 K/mm3 (1.2-5.4); Lymphocytes % (Auto) 17.9 % (13.4-35.0); Mean Corpuscular HGB Conc 34 % (30-34); Mean Corpuscular Volume 89 fl (79-97); Monocytes # (Auto) 1.5 K/mm3 (0.0-0.8); Platelet Count 382 K/mm3 (140-440); Red Blood Count 3.94 M/mm3 (3.65-5.03); Red Cell Distribution Width 14.6 % (13.2-15.2)
[2018-12-28] MEDS ORDERED: K-DUR PO ONE (03:54)
[2018-12-28] MEDS ORDERED: DILAUDID IV ONE (04:28)
[2018-12-28] MEDS ORDERED: ATIVAN IV ONE (04:56)
[2018-12-28] MEDS ORDERED: ATIVAN ONE (04:59)
[2018-12-28 06:20] LABS: Amphetamine Screen,Urine PRESUMPTIVE NEGATIVE; Benzodiazepines Screen,Urine PRESUMPTIVE NEGATIVE; Cannabinoid Screen,Urine PRESUMPTIVE NEGATIVE; Methadone Screen,Urine PRESUMPTIVE NEGATIVE; Opiate Screen,Urine PRESUMPTIVE NEGATIVE
[2018-12-28 06:26] LABS: Bilirubin,Urine NEG (Negative); Blood,Urine LG (Negative); Color,Urine Yellow (Yellow); Mucus,Urine FEW /HPF; Protein,Urine <15 mg/dL mg/dL (Negative); Urobilinogen,Urine < 2.0 mg/dL (<2.0)
[2018-12-28 06:30] LABS: RBC,Urine > 182.0 /HPF (0.0-6.0)
[2018-12-28 06:33] VITALS: BP 171/102
[2018-12-28 06:37] LABS: Cocaine Screen,Urine PRESUMPTIVE POSITIVE
== END 2018-12-28 06:44 | disposition home or self-care (01) ==
LOC: ED 01:44
DX: A18.4 Tuberculosis of skin and subcutaneous tissue (principal); R00.0 Tachycardia, unspecified; F14.10 Cocaine abuse, uncomplicated; I10 Essential (primary) hypertension; F17.210 Nicotine dependence, cigarettes, uncomplicated; Z88.6 Allergy status to analgesic agent; Z79.899 Other long term (current) drug therapy
CPT/HCPCS: 36415; 80048; 80307; 81001; 85025; 96374; 96375; 96376; 99284; J1170; J1200; J2060; J2405; J2930; J3010; J7030

== ENCOUNTER 2019-01-16 03:02 | Emergency (ER) | payer OTHER ==
[2019-01-16] MEDS ORDERED: TYLENOL PO ONE (03:23)
[2019-01-16] MEDS ORDERED: NORCO 5/325 ONE (07:22)
[2019-01-16] MEDS ORDERED: SOLU-Medrol ONE (07:23)
[2019-01-16] MEDS ORDERED: NORCO 5/325 PO ONE (07:26)
[2019-01-16] MEDS ORDERED: SOLU-Medrol IM ONE (07:26)
[2019-01-16] MEDS ORDERED: NACL 0.9% 1000 ML 1,000 ML IV ONE (07:42)
--- NOTE | 2019-01-16 07:43 | Emergency Department Report ---
ED General Adult HPI - General Chief complaint: Pain General Stated complaint: FULL BODY PAIN/LUPUS Time Seen by Provider: 01/16/19 07:22 Source: patient, EMS Mode of arrival: Wheelchair Limitations: No Limitations - History of Present Illness Initial comments: Patient is a 48-year-old female that presents emergency room with generalized body pain. Patient states she feels like she is having a lupus flare up. Patient states her pain is a 10 out of 10. Patient states her pain is worse with movement and palpation. Patient states her pain is better with rest and lying still. Patient states she has a long history of lupus. Patient states she used cocaine last night to try to help the pain. -: Sudden Severity scale (0 -10): 10 Quality: stabbing Consistency: constant Improves with: rest Worsens with: movement Associated Symptoms: denies other symptoms Treatments Prior to Arrival: none - Related Data Home Medications Medication Instructions Recorded Confirmed Last Taken Ambien 1 each PO DAILY 08/30/18 08/30/18 Unknown Cymbalta 30 mg PO DAILY 08/30/18 08/30/18 Unknown Gabapentin 300 mg PO DAILY 08/30/18 08/30/18 Unknown Hydrochlorothiazide 25 mg PO DAILY 08/30/18 08/30/18 Unknown Seroquel 50 mg PO HS 08/30/18 08/30/18 Unknown amLODIPine 10 mg PO DAILY 08/30/18 08/30/18 Unknown Previous Rx's Medication Instructions Recorded Last Taken Type Ondansetron [Zofran Odt] 4 mg PO Q8HR PRN #20 tab.rapdis 04/21/18 Unknown Rx Keppra 750 mg PO BID #60 08/31/18 Unknown Rx Oxycodone HCl/Acetaminophen 1 each PO Q6HR PRN #20 tablet 08/31/18 Unknown Rx [Percocet 7.5/325 mg] Plaquenil 150 mg PO BID 08/31/18 Unknown Rx QUEtiapine [SEROquel] 50 mg PO QHS tablet 08/31/18 Unknown Rx levoFLOXacin [Levaquin] 750 mg PO QDAY #10 tablet 08/31/18 Unknown Rx predniSONE [Deltasone] 40 mg PO QDAY tablet 08/31/18 Unknown Rx HYDROcodone/APAP 5-325 [[place] 1 - 2 each PO Q6HR PRN #14 tablet 12/28/18 Unknown Rx 5/325] Allergies Allergy/AdvReac Type Severity Reaction Status Date / Time lisinopril Allergy Swelling Verified 08/30/18 18:30 ibuprofen [From Motrin] AdvReac Bleeding Verified 12/28/18 01:51 ED Review of Systems ROS: Stated complaint: FULL BODY PAIN/LUPUS Other details as noted in HPI Constitutional: denies: chills, fever Eyes: denies: eye pain, eye discharge, vision change ENT: denies: ear pain, throat pain Respiratory: denies: cough, shortness of breath, wheezing Cardiovascular: denies: chest pain, palpitations Endocrine: no symptoms reported Gastrointestinal: denies: abdominal pain, nausea, diarrhea Genitourinary: denies: urgency, dysuria, discharge Musculoskeletal: arthralgia, myalgia. denies: back pain, joint swelling Skin: denies: rash, lesions Neurological: denies: headache, weakness, paresthesias Psychiatric: denies: anxiety, depression Hematological/Lymphatic: denies: easy bleeding, easy bruising ED Past Medical Hx - Past Medical History Previous Medical History?: Yes Hx Hypertension: Yes Hx Seizures: Yes Additional medical history: LUPUS, ulcers - Surgical History Past Surgical History?: Yes Hx Cholecystectomy: Yes Additional Surgical History: C-sections X 3, Hernia Repair, Perforated Ulcer, Bowel Obstruction - Family History Family history: no significant - Social History Smoking Status: Current Every Day Smoker Substance Use Type: Alcohol, Cocaine - Medications Home Medications: Home Medications Medication Instructions Recorded Confirmed Last Taken Type Ondansetron [Zofran Odt] 4 mg PO Q8HR PRN #20 tab.rapdis 04/21/18 08/30/18 Unknown Rx Ambien 1 each PO DAILY 08/30/18 08/30/18 Unknown History Cymbalta 30 mg PO DAILY 08/30/18 08/30/18 Unknown History Gabapentin 300 mg PO DAILY 08/30/18 08/30/18 Unknown History Hydrochlorothiazide 25 mg PO DAILY 08/30/18 08/30/18 Unknown History Seroquel 50 mg PO HS 08/30/18 08/30/18 Unknown History amLODIPine 10 mg PO DAILY 08/30/18 08/30/18 Unknown History Keppra 750 mg PO BID #60 08/31/18 Unknown Rx Oxycodone HCl/Acetaminophen 1 each PO Q6HR PRN #20 tablet 08/31/18 Unknown Rx [Percocet 7.5/325 mg] Plaquenil 150 mg PO BID 08/31/18 Unknown Rx QUEtiapine [SEROquel] 50 mg PO QHS tablet 08/31/18 Unknown Rx levoFLOXacin [Levaquin] 750 mg PO QDAY #10 tablet 08/31/18 Unknown Rx predniSONE [Deltasone] 40 mg PO QDAY tablet 08/31/18 Unknown Rx HYDROcodone/APAP 5-325 [[place] 1 - 2 each PO Q6HR PRN #14 tablet 12/28/18 Unknown Rx 5/325] ED Physical Exam - General Limitations: No Limitations General appearance: alert, in no apparent distress - Head Head exam: Present: atraumatic, normocephalic - Eye Eye exam: Present: normal appearance - ENT ENT exam: Present: mucous membranes moist - Neck Neck exam: Present: normal inspection - Respiratory Respiratory exam: Present: normal lung sounds bilaterally. Absent: respiratory distress - Cardiovascular Cardiovascular Exam: Present: regular rate, normal rhythm. Absent: systolic murmur, diastolic murmur, rubs, gallop - GI/Abdominal GI/Abdominal exam: Present: soft, normal bowel sounds - Extremities Exam Extremities exam: Present: normal inspection - Back Exam Back exam: Present: normal inspection - Neurological Exam Neurological exam: Present: alert, oriented X3 - Psychiatric Psychiatric exam: Present: normal affect, normal mood - Skin Skin exam: Present: warm, dry, intact, normal color. Absent: rash ED Course Vital Signs 01/16/19 01/16/19 01/16/19 03:18 08:30 09:03 Temperature 97.8 F Pulse Rate 109 H Respiratory 18 18 18 Rate Blood Pressure 160/107 Blood Pressure 169/78 [Left] O2 Sat by Pulse 100 98 Oximetry 01/16/19 01/16/19 01/16/19 09:04 09:52 12:56 Temperature 98.0 F Pulse Rate 102 H Respiratory 18 18 17 Rate Blood Pressure Blood Pressure 159/73 [Left] O2 Sat by Pulse 96 Oximetry - Reevaluation(s) Reevaluation #1: Patient states her anxiety is better. Patient given Ativan for anxiety. Patient states her pain is still an 8 out of 10. Patient was given another milligram Dilaudid. 01/16/19 10:21 Reevaluation #2: I discussed plan of care with patient. Patient agrees to plan of care and garth gonzalez. I discussed all results with patient. 01/16/19 11:56 - Consultations Consultation #1: I discussed case with [facility] physician for possible transfer. [facility] physician states she will start the process for transfer. 01/16/19 11:03 I discussed case again with [facility] physician and cigar roller states that the patient has been accepted to [facility] by . 01/16/19 11:54 ED Medical Decision Making - Lab Data Result diagrams: 01/16/19 07:47 01/16/19 07:47 - Medical Decision Making Patient is a 48-year-old female presents emergency room with generalized body pain and lupus flare. Patient given multiple medication and is difficult to control her pain. Patient's pain is intractable. Patient transferred to [facility] since the patient requires admission and is a [facility] patient. I spoke with [facility] physician and the patient has been accepted to [facility]. Labs unremarkable. - Differential Diagnosis intractable pain. Lupus flare. body pain Critical care attestation.: If time is entered above; I have spent that time in minutes in the direct care of this critically ill patient, excluding procedure time. ED Disposition Clinical Impression: Intractable pain, Lupus, SLE exacerbation, Generalized pain Disposition: DC/TX-70 ANOTHER TYPE HLTHCARE Is pt being admited?: No Does the pt Need Aspirin: No Condition: Critical Time of Disposition: 11:55
[2019-01-16 08:06] LABS: Basophils % (Auto) 0.5 % (0.0-1.8); Eosinophils # (Auto) 0.5 K/mm3 (0.0-0.4); Eosinophils % (Auto) 5.8 % (0.0-4.3); Hematocrit 31.3 % (30.3-42.9); Hemoglobin 10.7 gm/dl (10.1-14.3); Lymphocytes # (Auto) 1.8 K/mm3 (1.2-5.4); Lymphocytes % (Auto) 19.4 % (13.4-35.0); Mean Corpuscular HGB Conc 34 % (30-34); Mean Corpuscular Volume 88 fl (79-97); Monocytes # (Auto) 0.7 K/mm3 (0.0-0.8); Monocytes % (Auto) 7.3 % (0.0-7.3); Platelet Count 537 K/mm3 (140-440); Red Blood Count 3.58 M/mm3 (3.65-5.03)
[2019-01-16] MEDS ORDERED: ZOFRAN IV ONE (09:12)
[2019-01-16] MEDS ORDERED: DILAUDID IV ONE ×2 (09:12→10:21)
[2019-01-16] MEDS ORDERED: ATIVAN IV ONE (09:12)
[2019-01-16 11:05] LABS: Alanine Aminotransferase 10 units/L (7-56); Albumin 3.8 g/dL (3.9-5); BUN/Creatinine Ratio 13; Blood Urea Nitrogen 14 mg/dL (7-17); Calcium 9.6 mg/dL (8.4-10.2); Hemolysis Index 0
[2019-01-16 12:43] LABS: Bacteria,Urine 1+ /HPF (Negative); Bilirubin,Urine NEG (Negative); Blood,Urine NEG (Negative); Color,Urine Yellow (Yellow); Hyaline Casts,Urine 15 /LPF; Mucus,Urine FEW /HPF; Urobilinogen,Urine < 2.0 mg/dL (<2.0)
[2019-01-16 12:57] VITALS: BP 159/73
[2019-01-16 13:28] LABS: Benzodiazepines Screen,Urine PRESUMPTIVE NEGATIVE; Cannabinoid Screen,Urine PRESUMPTIVE NEGATIVE; Methadone Screen,Urine PRESUMPTIVE NEGATIVE; Opiate Screen,Urine PRESUMPTIVE NEGATIVE
[2019-01-16 13:30] LABS: Amphetamine Screen,Urine PRESUMPTIVE NEGATIVE; Cocaine Screen,Urine PRESUMPTIVE POSITIVE
== END 2019-01-16 13:08 | disposition other institution (70) ==
LOC: ED 03:02
DX: M32.8 Other forms of systemic lupus erythematosus (principal); I10 Essential (primary) hypertension; F17.200 Nicotine dependence, unspecified, uncomplicated; F14.10 Cocaine abuse, uncomplicated; Z79.899 Other long term (current) drug therapy; Z88.6 Allergy status to analgesic agent
CPT/HCPCS: 36415; 80053; 80307; 81001; 82550; 84703; 85025; 96372; 96374; 96375; 96376; 99285; J1170; J2060; J2405; J2930; J7030

== ENCOUNTER 2020-04-28 15:54 | Emergency (ER) | payer SELFPAY ==
[2020-04-28 17:36] VITALS: BP 175/91
[2020-04-28] MEDS ORDERED: HYDROcodone/ACETAMINOPHEN 5-325 MG TAB PO ONE (17:38)
--- NOTE | 2020-04-28 17:42 | Event Note ---
ED Screening Note Date of service: 04/28/20 Time: 17:42 ED Screening Note: Patient complains of right knee pain, neck pain, and upper back pain after a door fell on her at work today She denies loss of consciousness or abdominal pain This initial assessment/diagnostic orders/clinical plan/treatment(s) is/are subject to change based on patients health status, clinical progression and re- assessment by fellow clinical providers in the ED. Further treatment and workup at subsequent clinical providers discretion. Patient/guardian urged not to elope from the ED as their condition may be serious if not clinically assessed and managed. Initial orders include: X-rays Meds
--- NOTE | 2020-04-28 18:38 | XRay Report ---
CERVICAL SPINE 4 VIEWS INDICATION / CLINICAL INFORMATION: pain after fall with injury. COMPARISON: None available. FINDINGS: Anterior fusion at C5-C6. Interbody fusion at C4-5. Moderate degenerative changes C3-4 with advanced degenerative change at C6-7. No other significant skeletal abnormality. Signer Name: Tommy Nathan MD FACR Signed: 04/28/2020 6:37 PM Workstation Name: [id number]
--- NOTE | 2020-04-28 18:38 | XRay Report ---
THORACIC SPINE 3 VIEWS INDICATION / CLINICAL INFORMATION: upper pain after fall injury. COMPARISON: None available. FINDINGS: Mild diffuse degenerative change. No other significant skeletal abnormality. Alignment is normal. Signer Name: Tommy Nathan MD FACR Signed: 04/28/2020 6:37 PM Workstation Name: [id number]
--- NOTE | 2020-04-28 18:38 | XRay Report ---
RIGHT KNEE 4 VIEWS INDICATION / CLINICAL INFORMATION: pain after fall trauma. COMPARISON: None available. FINDINGS: No significant skeletal abnormality Signer Name: Tommy Nathan MD FACR Signed: 04/28/2020 6:38 PM Workstation Name: [id number]
--- NOTE | 2020-04-28 20:28 | Emergency Department Report ---
ED General Adult HPI - General Chief complaint: Multiple Trauma Stated complaint: RT LEG PAIN Time Seen by Provider: 04/28/20 17:35 Source: patient Mode of arrival: Wheelchair Limitations: No Limitations - History of Present Illness Initial comments: Patient complains of right knee pain, neck pain, and upper back pain after a storage door fell on her at work today. Patient states she may have hit her head on the floor, but is unsure. She denies any loss of consciousness, headache, numbness/tingling/weakness in her limbs, difficulty with speech/amb ulation, confusion, memory loss, loss of bladder/bowel control, or difficulty with speech/ambulation. Patient rates her overall pain as a 8/10 in severity. She reports history of neck surgery and chronic back issues - Related Data Home Medications Medication Instructions Recorded Confirmed Last Taken Ambien 1 each PO DAILY 08/30/18 08/30/18 Unknown Cymbalta 30 mg PO DAILY 08/30/18 08/30/18 Unknown Gabapentin 300 mg PO DAILY 08/30/18 08/30/18 Unknown Hydrochlorothiazide 25 mg PO DAILY 08/30/18 08/30/18 Unknown Seroquel 50 mg PO HS 08/30/18 08/30/18 Unknown amLODIPine 10 mg PO DAILY 08/30/18 08/30/18 Unknown Previous Rx's Medication Instructions Recorded Last Taken Type Ondansetron [Zofran Odt] 4 mg PO Q8HR PRN #20 tab.rapdis 04/21/18 Unknown Rx Keppra 750 mg PO BID #60 08/31/18 Unknown Rx Oxycodone HCl/Acetaminophen 1 each PO Q6HR PRN #20 tablet 08/31/18 Unknown Rx [Percocet 7.5/325 mg] Plaquenil 150 mg PO BID 08/31/18 Unknown Rx QUEtiapine [SEROquel] 50 mg PO QHS tablet 08/31/18 Unknown Rx levoFLOXacin [Levaquin] 750 mg PO QDAY #10 tablet 08/31/18 Unknown Rx predniSONE [Deltasone] 40 mg PO QDAY tablet 08/31/18 Unknown Rx HYDROcodone/APAP 5-325 [[place] 1 - 2 each PO Q6HR PRN #14 tablet 12/28/18 Unknown Rx 5/325] Acetaminophen/Codeine [Tylenol 1 tab PO Q8H PRN #8 tab 04/28/20 Unknown Rx /Codeine # 3 tab] methOCARBAMOL [Robaxin TAB] 1,500 mg PO Q8H PRN #20 tablet 04/28/20 Unknown Rx Allergies Allergy/AdvReac Type Severity Reaction Status Date / Time lisinopril Allergy Swelling Verified 08/30/18 18:30 ibuprofen [From Motrin] AdvReac Bleeding Verified 12/28/18 01:51 ED Review of Systems ROS: Stated complaint: RT LEG PAIN Other details as noted in HPI Constitutional: denies: chills, fever, malaise ENT: denies: throat pain Respiratory: denies: cough, shortness of breath Cardiovascular: denies: chest pain Gastrointestinal: denies: abdominal pain, nausea, vomiting Musculoskeletal: back pain. denies: joint swelling Neurological: denies: headache, weakness, numbness, paresthesias, abnormal gait ED Past Medical Hx - Past Medical History Hx Hypertension: Yes Hx Seizures: Yes Additional medical history: LUPUS, ulcers - Surgical History Hx Cholecystectomy: Yes Additional Surgical History: C-sections X 3, Hernia Repair, Perforated Ulcer, Bowel Obstruction - Social History Smoking Status: Current Every Day Smoker Substance Use Type: Alcohol, Cocaine - Medications Home Medications: Home Medications Medication Instructions Recorded Confirmed Last Taken Type Ondansetron [Zofran Odt] 4 mg PO Q8HR PRN #20 tab.rapdis 04/21/18 08/30/18 Unknown Rx Ambien 1 each PO DAILY 08/30/18 08/30/18 Unknown History Cymbalta 30 mg PO DAILY 08/30/18 08/30/18 Unknown History Gabapentin 300 mg PO DAILY 08/30/18 08/30/18 Unknown History Hydrochlorothiazide 25 mg PO DAILY 08/30/18 08/30/18 Unknown History Seroquel 50 mg PO HS 08/30/18 08/30/18 Unknown History amLODIPine 10 mg PO DAILY 08/30/18 08/30/18 Unknown History Keppra 750 mg PO BID #60 08/31/18 Unknown Rx Oxycodone HCl/Acetaminophen 1 each PO Q6HR PRN #20 tablet 08/31/18 Unknown Rx [Percocet 7.5/325 mg] Plaquenil 150 mg PO BID 08/31/18 Unknown Rx QUEtiapine [SEROquel] 50 mg PO QHS tablet 08/31/18 Unknown Rx levoFLOXacin [Levaquin] 750 mg PO QDAY #10 tablet 08/31/18 Unknown Rx predniSONE [Deltasone] 40 mg PO QDAY tablet 08/31/18 Unknown Rx HYDROcodone/APAP 5-325 [[place] 1 - 2 each PO Q6HR PRN #14 tablet 12/28/18 Unknown Rx 5/325] Acetaminophen/Codeine [Tylenol 1 tab PO Q8H PRN #8 tab 04/28/20 Unknown Rx /Codeine # 3 tab] methOCARBAMOL [Robaxin TAB] 1,500 mg PO Q8H PRN #20 tablet 04/28/20 Unknown Rx ED Physical Exam - General Limitations: No Limitations General appearance: alert, in no apparent distress, obese - Head Head exam: Present: atraumatic, normocephalic - Eye Eye exam: Present: normal appearance - ENT ENT exam: Present: mucous membranes moist - Neck Neck exam: Present: tenderness (Vertebral and paraspinal tenderness noted without obvious), full ROM - Respiratory Respiratory exam: Present: normal lung sounds bilaterally. Absent: respiratory distress - Cardiovascular Cardiovascular Exam: Present: regular rate, normal rhythm. Absent: systolic murmur, diastolic murmur, rubs, gallop - GI/Abdominal GI/Abdominal exam: Present: soft. Absent: tenderness - Extremities Exam Extremities exam: Present: full ROM, other (Tenderness to palpation noted of the anterior right knee without obvious deformity). Absent: calf tenderness - Back Exam Back exam: Present: full ROM, paraspinal tenderness (Thoracic), vertebral tenderness (Thoracic) - Neurological Exam Neurological exam: Present: alert, oriented X3 - Psychiatric Psychiatric exam: Present: normal affect, normal mood - Skin Skin exam: Present: warm, dry, intact, normal color. Absent: rash ED Course Vital Signs 04/28/20 17:33 Temperature 98 F Pulse Rate 80 Respiratory 18 Rate Blood Pressure 175/91 [Right] O2 Sat by Pulse 98 Oximetry ED Medical Decision Making - Radiology Data Radiology results: report reviewed CERVICAL SPINE 4 VIEWS INDICATION / CLINICAL INFORMATION: pain after fall with injury. COMPARISON: None available. FINDINGS: Anterior fusion at C5-C6. Interbody fusion at C4-5. Moderate degenerative changes C3-4 with advanced degenerative change at C6-7. No other significant skeletal abnormality. Signer Name: Tommy Nathan MD FACR Signed: 04/28/2020 6:37 PM Workstation Name: [email or web address] [id number] [id number] 4 VIEWS INDICATION / CLINICAL INFORMATION: pain after fall trauma. COMPARISON: None available. FINDINGS: No significant skeletal abnormality THORACIC SPINE 3 VIEWS INDICATION / CLINICAL INFORMATION: upper pain after fall injury. COMPARISON: None available. FINDINGS: Mild diffuse degenerative change. No other significant skeletal abnormality. Alignment is normal. - Medical Decision Making Patient complains of right knee pain, neck pain, and upper back pain after a storage door fell on her at work today. Patient states she may have hit her head on the floor, but is unsure. She denies any loss of consciousness, headache, numbness/tingling/weakness in her limbs, difficulty with speech/ambulation, confusion, memory loss, loss of bladder/bowel control, or difficulty with speech/ambulation. Patient rates her overall pain as a 8/10 in severity. She reports history of neck surgery and chronic back issues X-rays are negative for any acute bony abnormalities. Pain has improved with meds given here in ED per patient. She is well-appearing and stable for discharge home. Will treat for muscle strain. Recommend follow-up with primary care. Strict return precautions were discussed in detail with patient who verbalizes understanding peer Critical care attestation.: If time is entered above; I have spent that time in minutes in the direct care of this critically ill patient, excluding procedure time. ED Disposition Clinical Impression: Fall with injury, Neck muscle strain, Strain of thoracic back region Disposition: - TO HOME OR SELFCARE Is pt being admited?: No Condition: Stable Instructions: Thoracic Strain, Cervical Sprain Prescriptions: methOCARBAMOL [Robaxin TAB] 1,500 mg PO Q8H PRN #20 tablet PRN Reason: muscle spasm/tightness Acetaminophen/Codeine [Tylenol /Codeine # 3 tab] 1 tab PO Q8H PRN #8 tab PRN Reason: Pain , Severe (7-10) Referrals: PRIMARY CARE, [Primary Care Provider] - 3-5 Days Forms: Work/School Release Form(ED)
[2020-04-28] MEDS ORDERED: HYDROcodone/ACETAMINOPHEN 5-325 MG TAB ONE (20:40)
== END 2020-04-28 21:00 | disposition home or self-care (01) ==
LOC: ED 15:54
DX: S16.1XXA Strain of muscle, fascia and tendon at neck level, initial encounter (principal); S29.012A Strain of muscle and tendon of back wall of thorax, initial encounter; I10 Essential (primary) hypertension; G40.909 Epilepsy, unspecified, not intractable, without status epilepticus; F17.200 Nicotine dependence, unspecified, uncomplicated; F14.10 Cocaine abuse, uncomplicated; Z90.410 Acquired total absence of pancreas; Z98.890 Other specified postprocedural states; Z88.8 Allergy status to other drugs, medicaments and biological substances; W18.30XA Fall on same level, unspecified, initial encounter; Y93.89 Activity, other specified; Y92.89 Other specified places as the place of occurrence of the external cause; Y99.8 Other external cause status
CPT/HCPCS: 72040; 72070; 99283

== ENCOUNTER 2021-07-30 16:20 | Emergency (ER) | payer SELFPAY ==
[~2021-07-30 16:20] MED LIST: EPINEPHrine 1 MG/10 ML SYRINGE ONE; LIDOCAINE PF 100 MG/5 ML (CARDIAC SYRINGE) IV ONE; SODIUM BICARB 8.4% 50 MEQ/50 ML SYRINGE IV ONE
--- NOTE | 2021-07-30 16:28 | Emergency Department Report ---
ED CPR HPI - General Stated Complaint: CARDIAC ARREST Time Seen by Provider: 07/30/21 16:26 Source: EMS, old records reviewed Limitations: Altered Mental Status - History of Present Illness Initial Comments: 51-year-old female with past medical history Lupus, hypertension, ulcers, previous abdominal surgeries, seizures, bipolar disorder, and cocaine abuse presents to the hospital in cardiac arrest. EMS states he received call at 15: 22 for psychiatric disturbance and seizures. Upon arrival at 15: 32they were greeted by patient spouse stating that patient had several seizures and patient had a weak palpable pulse. Shortly after arrival patient's rhythm deteriorated to asystole and ACLS was initiated. Patient was intubated with 7.0 ET tube, received epinephrine x2 and rhythm in route with a combination of PEA and asystole. Intubating provider reports that patient had a fluid suctioned from airway before and after intubation. Accu-Chek reported as 118. Resuscitation efforts contain upon patient's arrival since she remains in asystole. - Related Data Home Medications Medication Instructions Recorded Confirmed Last Taken Ambien 1 each PO DAILY 08/30/18 08/30/18 Unknown Cymbalta 30 mg PO DAILY 08/30/18 08/30/18 Unknown Gabapentin 300 mg PO DAILY 08/30/18 08/30/18 Unknown Hydrochlorothiazide 25 mg PO DAILY 08/30/18 08/30/18 Unknown Seroquel 50 mg PO HS 08/30/18 08/30/18 Unknown amLODIPine 10 mg PO DAILY 08/30/18 08/30/18 Unknown Previous Rx's Medication Instructions Recorded Last Taken Type Ondansetron [Zofran Odt] 4 mg PO Q8HR PRN #20 tab.rapdis 04/21/18 Unknown Rx Keppra 750 mg PO BID #60 08/31/18 Unknown Rx Oxycodone HCl/Acetaminophen 1 each PO Q6HR PRN #20 tablet 08/31/18 Unknown Rx [Percocet 7.5/325 mg] Plaquenil 150 mg PO BID 08/31/18 Unknown Rx QUEtiapine [SEROquel] 50 mg PO QHS tablet 08/31/18 Unknown Rx levoFLOXacin [Levaquin] 750 mg PO QDAY #10 tablet 08/31/18 Unknown Rx predniSONE [Deltasone] 40 mg PO QDAY tablet 08/31/18 Unknown Rx HYDROcodone/APAP 5-325 [[place] 1 - 2 each PO Q6HR PRN #14 tablet 12/28/18 Unknown Rx 5/325] Acetaminophen/Codeine [Tylenol 1 tab PO Q8H PRN #8 tab 04/28/20 Unknown Rx /Codeine # 3 tab] methOCARBAMOL [Robaxin TAB] 1,500 mg PO Q8H PRN #20 tablet 04/28/20 Unknown Rx Allergies Allergy/AdvReac Type Severity Reaction Status Date / Time lisinopril Allergy Swelling Verified 08/30/18 18:30 ibuprofen [From Motrin] AdvReac Bleeding Verified 12/28/18 01:51 ED Review of Systems ROS: Stated complaint: CARDIAC ARREST Other details as noted in HPI Comment: Unobtainable due to pts medical conditions ED Past Medical Hx - Past Medical History Hx Hypertension: Yes Hx Seizures: Yes Additional medical history: LUPUS, ulcers - Surgical History Hx Cholecystectomy: Yes Additional Surgical History: C-sections X 3, Hernia Repair, Perforated Ulcer, Bowel Obstruction - Social History Smoking Status: Current Every Day Smoker Substance Use Type: Alcohol, Cocaine - Medications Home Medications: Home Medications Medication Instructions Recorded Confirmed Last Taken Type Ondansetron [Zofran Odt] 4 mg PO Q8HR PRN #20 tab.rapdis 04/21/18 08/30/18 Unknown Rx Ambien 1 each PO DAILY 08/30/18 08/30/18 Unknown History Cymbalta 30 mg PO DAILY 08/30/18 08/30/18 Unknown History Gabapentin 300 mg PO DAILY 08/30/18 08/30/18 Unknown History Hydrochlorothiazide 25 mg PO DAILY 08/30/18 08/30/18 Unknown History Seroquel 50 mg PO HS 08/30/18 08/30/18 Unknown History amLODIPine 10 mg PO DAILY 08/30/18 08/30/18 Unknown History Keppra 750 mg PO BID #60 08/31/18 Unknown Rx Oxycodone HCl/Acetaminophen 1 each PO Q6HR PRN #20 tablet 08/31/18 Unknown Rx [Percocet 7.5/325 mg] Plaquenil 150 mg PO BID 08/31/18 Unknown Rx QUEtiapine [SEROquel] 50 mg PO QHS tablet 08/31/18 Unknown Rx levoFLOXacin [Levaquin] 750 mg PO QDAY #10 tablet 08/31/18 Unknown Rx predniSONE [Deltasone] 40 mg PO QDAY tablet 08/31/18 Unknown Rx HYDROcodone/APAP 5-325 [[place] 1 - 2 each PO Q6HR PRN #14 tablet 12/28/18 Unknown Rx 5/325] Acetaminophen/Codeine [Tylenol 1 tab PO Q8H PRN #8 tab 04/28/20 Unknown Rx /Codeine # 3 tab] methOCARBAMOL [Robaxin TAB] 1,500 mg PO Q8H PRN #20 tablet 04/28/20 Unknown Rx ED Physical Exam - Other Other exam information: General: Unresponsive Head: Atraumatic Eyes: Pupils fixed and dilated ENT: Orally intubated 7.0 ET tube Neck: Normal appearance Chest: Clear to auscultation bilaterally, equal breath sounds with bag CV: Pulse Abdomen: Large vertical abdominal scar from previous surgery Back: Normal inspection Extremity: No deformity, no spontaneous mood Neuro: GCS equals 3, unresponsive Skin: No rash ED Course - Reevaluation(s) Reevaluation #1: 07/30/21 Resuscitation efforts were continued upon patient arrival to the ED at 16:07. Chest compressions continued. Patient's rhythm initially asystole. During resuscitation efforts patient did have one episode of V. tach and received 300 J of synchronized cardioversion. Unfortunately despite resuscitation efforts included 3 additional doses of epinephrine, lidocaine 100 mg, and sodium bicarb patient remained pulseless with asystole. Given prolonged pulselessness, unre active pupils, and poor rhythm response, resuscitation were efforts discontinued and time of 16:19 ED Medical Decision Making - Medical Decision Making 51-year-old female presents to the hospital cardiopulmonary arrest who remained in PEA/asystole despite prolonged resuscitation efforts. Time of 16: 19. Patient's daughters and has been informed of after arrival to the ED. Patient is a GBI case spouse from scene also arrived and was informed of pt's . Critical Care Time: Yes Critical care time in (mins) excluding proc time.: 30 Critical care attestation.: If time is entered above; I have spent that time in minutes in the direct care of this critically ill patient, excluding procedure time. Critical Care Time: 30 Minutes of critical care time excluding procedures were used in the care of the patient. I came immediately to the bedside upon patient's arrival. I obtained history from EMS at the bedside. I discussed treatment plan with the nursing team members. I reviewed electronic record. Patient required multiple interventions and reassessments. ED Disposition Clinical Impression: Cardiopulmonary arrest Disposition: 20 Is pt being admited?: No Condition: Stable Time of Disposition: 16:39
== END 2021-07-30 18:30 ==
LOC: ED 16:20
DX: I46.9 Cardiac arrest, cause unspecified (principal); F17.200 Nicotine dependence, unspecified, uncomplicated; F10.20 Alcohol dependence, uncomplicated; Z88.8 Allergy status to other drugs, medicaments and biological substances; Z88.6 Allergy status to analgesic agent
CPT/HCPCS: 31500; 92950; 99285; J0171; J2001; J3490